=== PATIENT | female | born 1980 | race Two or more races ===

== ENCOUNTER 2022-05-19 08:36 | Outpatient (CLI) | payer OTHER | END 2022-05-19 08:47 | disposition home or self-care (01) | LOC: MAMO-SONO 08:36 | DX: Z12.31 Encounter for screening mammogram for malignant neoplasm of breast (principal); R92.8 Other abnormal and inconclusive findings on diagnostic imaging of breast ==

== ENCOUNTER 2022-06-16 10:29 | Outpatient (CLI) | payer OTHER | END 2022-06-16 10:34 | disposition home or self-care (01) | LOC: MAMO-SONO 10:29 | DX: N63.0 Unspecified lump in unspecified breast (principal); N64.4 Mastodynia ==

== ENCOUNTER 2023-08-13 13:10 | Outpatient (CLI) | payer OTHER | END 2023-08-13 13:15 | disposition home or self-care (01) | LOC: MAMO-SONO 13:10 | PROVIDERS: ATTEND Obstetrics & Gynecology | DX: N64.4 Mastodynia (principal) ==

== ENCOUNTER 2023-08-15 09:24 | Outpatient (CLI) | payer OTHER | END 2023-08-15 09:27 | disposition home or self-care (01) | LOC: RAD 09:24 | PROVIDERS: ATTEND Internal Medicine | DX: I11.9 Hypertensive heart disease without heart failure (principal) ==

== ENCOUNTER 2023-09-07 07:50 | Outpatient (CLI) | payer OTHER | END 2023-09-07 07:59 | disposition home or self-care (01) | LOC: RAD 07:50 | PROVIDERS: ATTEND Internal Medicine | DX: F45.8 Other somatoform disorders (principal) ==

== ENCOUNTER 2024-03-07 16:14 | Emergency (ER) | payer OTHER ==
[~2024-03-07] VITALS: Ht 162.6 cm; Wt 81.6 kg
[~2024-03-07 16:14] MED LIST: METOPROLOL SUCC25 MG
[2024-03-07] MEDS ORDERED: PEPCID AC10 MG PO (17:30)
[2024-03-07] MEDS ORDERED: XYZAL5 MG PO (17:31)
[2024-03-07] MEDS ORDERED: ORPHENADRINE CITRATE 30 MG/ML AMPUL IM STA (19:19)
== END 2024-03-07 22:55 | disposition home or self-care (01) ==
LOC: ER 16:16
DX: M94.0 Chondrocostal junction syndrome [Tietze] (principal); Z88.6 Allergy status to analgesic agent

== ENCOUNTER → 2024-09-06 | Outpatient (CLI) | payer OTHER ==
[~2024-09-06] MED LIST changes: +PEPCID AC10 MG PO; +XYZAL5 MG PO
== END | disposition home or self-care (01) ==
LOC: MAMO-SONO 07:44
DX: N64.4 Mastodynia (principal)